=== PATIENT | male | born 1970 | race Caucasian/White ===

== ENCOUNTER → 2020-09-19 | Outpatient (CLI) | payer MEDICARE, OTHER | LOC: WCC 13:43 | DX: Z53.8 Procedure and treatment not carried out for other reasons (principal) ==

== ENCOUNTER 2020-09-20 18:34 | Emergency (ER) | payer OTHER ==
[2020-09-20 20:10] LABS: RED BLOOD COUNT 4.3 M/UL (4.20-5.50); WHITE BLOOD COUNT 18.4 K/UL (4.5-11.0)
[2020-09-20 20:27] LABS: BUN/CREATININE RATIO 18 (0-10)
== END 2020-09-21 00:20 | disposition short-term general hospital (02) ==
LOC: ER1 18:34
PROVIDERS: Emergency Medicine
DX: T81.40XA Infection following a procedure, unspecified, initial encounter (principal); F17.210 Nicotine dependence, cigarettes, uncomplicated
CPT/HCPCS: 70491; 73590; 80053; 83605; 85025; 87040; 96365; 96367; 96375; 99284; J2270; J3370; J7030; J7050; Q9967